=== PATIENT | female | born 1990 | race Caucasian/White ===

== ENCOUNTER 2017-10-14 17:35 | Emergency (ER) | payer OTHER ==
[2017-10-14] MEDS ORDERED: predniSONE 20 MG TAB PO ONE (17:52)
[2017-10-14] MEDS ORDERED: RANITIDINE 50 MG/2 ML VIAL IVP ONE (17:53)
--- NOTE | 2017-10-14 18:19 | EDPHY ---
H & P Stated Complaint: ALLERGIC REBOUND REACTION/TOOK EPI TWO HRS PRIOR - Personal History LMP (Females 10-55): Now Current Tetanus Diphtheria and Acellular Pertussis (TDAP): Yes - Medical/Surgical History Hx Asthma: No Hx Chronic Respiratory Disease: No Hx Diabetes: No Hx Cardiac Disease: No Hx Renal Disease: No Hx Cirrhosis: No Hx Alcoholism: No Hx HIV/AIDS: No Hx Splenectomy or Spleen Trauma: No Other PMH: ANAPHYLACTIC REACT TO POLLEN, SX ACL R - Social History Smoking Status: Never smoked Time Seen by Provider: 10/14/17 17:48 HPI/ROS: Chief complaint: Allergic reaction History of present illness: This is a 27-year-old female who presents to the emergency department concerned she is having allergic reaction. Patient has a history of severe allergies. Her last severe allergic reaction was to charlette. She has undergone allergy testing. It is unclear what the allergens are that trigger her symptoms, apparently she is very susceptible to environmental allergens. Today she was eating pistachios. She has eaten pistachios multiple times without difficulty. She started to swell in the face and throat was some trouble breathing. She gave herself her EpiPen. That was 2 hr ago. She did not take any other medications. She feels symptoms are coming back was swelling of the face. No trouble breathing. No fevers or cold symptoms. Review of systems: A 10 point review of systems was obtained and other than described above was negative (Raffi Hector) - Physical Exam Exam: General Appearance: Alert and no distress. Eyes: Pupils equal and round no injection. ENT: No angioedema. No hoarseness, no drooling, no stridor. Respiratory: Chest is non tender, lungs are clear to auscultation. Cardiac: regular rate and rhythm Gastrointestinal: Abdomen is soft and non tender, no masses, bowel sounds normal. Musculoskeletal: Neck is supple and non tender. Extremities have full range of motion and are non tender. Skin: Erythema and edema to the face, neck and upper torso. (Raffi Hector) Constitutional: Initial Vital Signs Temperature (C) 36.7 C 10/14/17 17:40 Heart Rate 73 10/14/17 17:40 Respiratory Rate 18 10/14/17 17:40 Blood Pressure 128/95 H 10/14/17 17:40 O2 Sat (%) 99 10/14/17 17:40 O2 Delivery Mode Room Air Allergies/Adverse Reactions: pollen extracts Allergy (Verified 10/14/17 17:39) Home Medications: Medication Instructions Recorded EPINEPHrine [Epipen 0.3 MG] 0.3 mg IM ONCE #2 syr 10/14/17 Epipen 0.3 MG 10/14/17 predniSONE 40 mg PO DAILY 3 Days tablet 10/14/17 Medical Decision Making ED Course/Re-evaluation: Patient seen under the supervision of my secondary supervising physician Dr. Anjali Campbell. Patient presents concerned she is having an allergic reaction. Vital signs are stable. No respiratory distress. IV is established. She given 1 liter of NS. She is given 60 mg of oral prednisone. She is given 50 mg of IV Benadryl and 50 mg of IV Zantac. She is observed for over an hour with resolution of symptoms. She is comfortable going home. She is given a new prescription for epi pens although she still has some at home. She is placed on prednisone and asked continue an antihistamine and Zantac. Home care is discussed. She is to follow up with primary care doctor for recheck. Strict return precautions are given. (Raffi Hector) Differential Diagnosis: Included but not limited to contact dermatitis, allergic reaction, anaphylaxis ( Raffi Hector) Other Provider: The patient was evaluated and managed by the Physician It Systems Manager. I discussed the patient's presentation and course with the midlevel provider with them and agree with the evaluation. My co-signature indicates that I have reviewed this chart and I agree with the findings and plan of care as documented. I am the secondary supervising physician. (Anjali Campbell) - Data Points Medications Given: Discontinued Medications Diphenhydramine HCl (Benadryl Injection) 50 mg IVP EDNOW ONE Stop: 10/14/17 17:54 Last Admin: 10/14/17 17:59 Dose: 50 mg Prednisone (Prednisone) 60 mg PO EDNOW ONE Stop: 10/14/17 17:53 Last Admin: 10/14/17 17:58 Dose: 60 mg Ranitidine HCl (Zantac) 50 mg IVP EDNOW ONE Stop: 10/14/17 17:54 Last Admin: 10/14/17 17:58 Dose: 50 mg Departure - Departure Disposition: Home, Routine, Self-Care Clinical Impression: Allergic reaction Qualifiers: Encounter type: initial encounter Qualified Code(s): T78.40XA - Allergy, unspecified, initial encounter Condition: Good Instructions: General Allergic Reaction (ED) Additional Instructions: Follow-up with a primary care doctor on Tuesday or Tuesday for recheck Take prednisone as prescribed starting tomorrow until finished Please also take Claritin or Zyrtec daily for the next 3 days Take Zantac 150 mg twice daily for the next 3 days Carry your epinephrine pens with you at all times If symptoms return or new symptoms develop return immediately to the emergency room or call 911 Referrals: Jax Nicole MD [Medical Doctor] - As per Instructions [facility],. [Clinic] - As per Instructions Prescriptions: EPINEPHrine [Epipen 0.3 MG] 0.3 mg IM ONCE #2 syr predniSONE 40 mg PO DAILY 3 Days tablet
[2017-10-14 19:18] VITALS: BP 118/79
== END 2017-10-14 19:17 | disposition home or self-care (01) ==
DX: T78.1XXA Other adverse food reactions, not elsewhere classified, initial encounter (principal)
CPT/HCPCS: 96374; J1200; J2780; J7512